=== PATIENT | male | born 1955 | race Caucasian/White ===

== ENCOUNTER 2017-08-31 03:09 | Emergency (ER) | payer SELFPAY ==
[2017-08-31] MEDS: KETOROLAC TROMETHAMINE 60 MG/2 ML VIAL IM ONE (04:01)
[2017-08-31] MEDS: AMOXICILLIN 500 MG CAPSULE PO ONE (04:25)
[2017-08-31] MEDS: KETOROLAC TROMETHAMINE 60 MG/2 ML VIAL ONE (04:25)
--- NOTE | 2017-08-31 04:34 | ED Physician Documentation ---
Low Back Pain - HISTORIAN Historian: patient - HPI Stated Complaint: L HIP/LEG PAIN Chief Complaint: Lower Extremity Problem Additional Information: recently had dental sepsis - took ibu but no antibiotics lt mandible w/ pain also rt facial area-spent time lying on lt side. pt thinks lying on lt side upset lt hip area w/ pain lt lumbar to lt knee. there has been no trauma or lifting and he has not usual lt hip or leg pain-sciatica. the toradol wwe gave him has helped remarkably. also the tooth still looks swollen and is tender. 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 and the pain) Surgeries/Procedures: appendectomy (tonsils) Allergies/Adverse Reactions: Allergies Allergy/AdvReac Type Severity Reaction Status Date / Time No Known Allergies Allergy Verified 08/31/17 03:28 Home Medications: Ambulatory Orders Medication Instructions Recorded Amoxicillin [Trimox] 500 mg PO QID #40 capsule 08/31/17 - SOCIAL HX Smoking History: less than 1 pack/day Alcohol Use: none Drug Use: none - FAMILY HX Family History: no significant history - VITAL SIGNS Vital Signs: Vital Signs Temp Pulse Resp BP Pulse Ox 97.9 F 84 20 187/103 96 08/31/17 03:10 08/31/17 03:10 08/31/17 03:10 08/31/17 03:10 08/31/17 03:10 - REVIEWED ASSESSMENTS Nursing Assessment Reviewed: Yes Vitals Reviewed: Yes ED Results Lab/Radiology - Orders Orders: ED Orders Category Date Time Status Amoxicillin [Amoxil] Med 08/31/17 04:21 Once 1,000 mg PO NOW ONE Ketorolac Tromethamine [Toradol] Med 08/31/17 03:52 Discontinued 60 mg .ROUTE .STK-MED ONE Ketorolac Tromethamine [Toradol] Med 08/31/17 03:51 Discontinued 60 mg IM NOW ONE Low Back Pain/Injury - Physical Exam General Appearance: mild distress, moderate distress EENT: eye inspection normal Neck: non-tender, painless ROM Resp/CVS: chest non-tender, breath sounds nml, heart sounds nml, no resp. distress, lungs clear, reg. rate & rhythm Abdomen: non-tender Back: CVA tenderness (lumbar area) Neuro/Psych: oriented x3, motor nml, sensation nml Skin: warm/dry, normal color. No: cyanosis, diaphoresis, jaundice Extremities: normal range of motion, no evidence of injury, no edema Discharge Clincal Impression: dental sepsis--sciatica Prescriptions: Amoxicillin [Trimox] 500 mg PO QID #40 capsule Referrals: Primary Doctor,No [Primary Care Provider] - 2 Days Condition: Good Disposition: 01 HOME, SELF-CARE Decision to Admit: NO Decision Time: 04:44
[2017-08-31 04:44] VITALS: BP 177/107
== END 2017-08-31 04:30 | disposition home or self-care (01) ==
LOC: ED 03:09
DX: A41.9 Sepsis, unspecified organism (principal); M54.30 Sciatica, unspecified side
CPT/HCPCS: 96372; 99283; J1885

== ENCOUNTER 2017-09-02 05:41 | Emergency (ER) | payer SELFPAY ==
--- NOTE | 2017-09-02 06:00 | ED Physician Documentation ---
General Adult - HISTORIAN Historian: patient - HPI Stated Complaint: Back pain Chief Complaint: General Adult Onset: days ago (2) Timing: still present Severity: moderate Further Comments: yes (Pt is a 61 yo male with low back pain. Pt was seen here 2 days ago with the same complaint, and was tx'd successfully with Toradol. Pain went away, but then returned this am. 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 Pt has had no acute back injury. Pt c/o spasm in his L leg.) - ROS CONST: no problems EYES/ENT: none CVS/RESP: none GI/: none MS/SKIN/LYMPH: back pain - PAST HX Past History: other (histoplasmosis) Surgeries/Procedures: other (tonsils) Allergies/Adverse Reactions: Allergies Allergy/AdvReac Type Severity Reaction Status Date / Time No Known Allergies Allergy Verified 09/02/17 05:51 Home Medications: Ambulatory Orders Medication Instructions Recorded Amoxicillin [Trimox] 500 mg PO QID #40 capsule 08/31/17 - SOCIAL HX Smoking History: cigarettes - FAMILY HX Family History: No - VITAL SIGNS Vital Signs: Vital Signs Temp Pulse Resp BP Pulse Ox 82 18 160/91 96 09/02/17 05:41 09/02/17 05:41 09/02/17 05:41 09/02/17 05:41 - REVIEWED ASSESSMENTS Nursing Assessment Reviewed: Yes Vitals Reviewed: Yes Progress - Progress Progress: Toradol 60 mg IM Diazepam 5 mg. Two tablets-->home. Take one every 8 hrs as needed for spasm. ED Results Lab/Radiology - Orders Orders: ED Orders Category Date Time Status Ketorolac Tromethamine [Toradol] Med 09/02/17 05:59 Once 60 mg IM NOW ONE General Adult Physical Exam - PHYSICAL EXAM GENERAL APPEARANCE: moderate distress NECK: normal inspection, supple RESPIRATORY: no resp distress, chest non-tender, breath sounds normal CVS: reg rate & rhythm, heart sounds normal BACK: normal inspection, other (spasm, lower lumbar) SKIN: warm/dry, normal color EXTREMITIES: non-tender, normal range of motion, no edema NEURO: oriented X3, motor nml, sensation nml Discharge Clincal Impression: low back pain, muscle spasm Referrals: Primary Doctor,No [Primary Care Provider] - 2 Days Condition: Good Disposition: 01 HOME, SELF-CARE Decision to Admit: NO Decision Time: 06:53
[2017-09-02] MEDS: KETOROLAC TROMETHAMINE 60 MG/2 ML VIAL IM ONE (06:13)
[2017-09-02] MEDS ORDERED: DIAZEPAM 5 MG TABLET PO ONE (06:42)
[2017-09-02 06:53] VITALS: BP 162/87
== END 2017-09-02 06:51 | disposition home or self-care (01) ==
LOC: ED 05:41
DX: M54.5 Low back pain (principal); M62.830 Muscle spasm of back
CPT/HCPCS: 96372; 99283; J1885